=== PATIENT | male | born 1960 | race Caucasian/White ===

== ENCOUNTER 2023-06-25 00:49 | Day surgery (SDC) | payer MEDICARE, SELFPAY ==
[2023-06-18 11:57] VITALS: BMI 30.1
--- NOTE | 2023-06-18 12:04 | PC.NURSE ---
Report to the Outpatient Waiting Room, entrance under the green pavilion located off [facility], at time 0600 on date 06/25/23. Planned Procedure Time: 0730. Time changes happen often and if your time is changed the preop area will call you the afternoon before. - You and your visitor will be asked to self-screen and do not enter if you have any COVID symptoms. - A mask is optional within the hospital at this time. Patients may have clear liquids (water, carbonated beverages, clear teas, apple juice) until 3 hours prior to surgery with a maximum of 20 ounces. - No food from midnight until time of surgery Take the following medications with a SIP of water the morning of surgery: NONE DO NOT STOP ANY OF YOUR OTHER PRESCRIPTION MEDICATIONS PRIOR TO SURGERY ?EXCEPT THE FOLLOWING Medications to discontinue per physician: N/A Date to take last dose: N/A Please no make-up, nail welsh, hairspray, perfume, deodorant, or body powder the day of surgery. No jewelry (including any body piercings) or valuables the day of surgery, leave them at home. Please take a shower or bath the night before, or the morning of, surgery with an antibacterial soap. Wear comfortable, loose fitting clothing. - Jewelry must be removed prior to entering the operating room. Rings and piercings that are not removed may be cut off. - The hospital will not accept responsibility for valuables. - Please leave all valuables, including medications, at home the day of surgery. If you are going home after surgery, a licensed nascar driver must drive you home. - NO public transportation without another adult if you receive anesthesia. - We recommend that an adult stay with you for 24 hours following discharge. - We also recommend that you do not drive, make important decision, drink alcoholic beverages, or take any drugs that were not prescribed by your health care provider for at least 24 hours after your discharge time. Follow any additional instructions given to you from your surgeon. If you or anyone in your household have experienced Covid symptoms in the past week, please notify your surgeon or the nurse liaison at the phone number below for possible testing. Telephone instructions given to PT - BRANDT JAIME and asked if any additional questions and then verbalized understanding. Patient advised to call surgeon office or pre surgery nurse liaison [phone] if any additional questions.
[2023-06-25 06:20] VITALS: BP 115/80; PULSE 62; RESP 18; TEMP 36.6; O2SAT 98
[2023-06-25] MEDS: LACTATED RINGERS 1,000 ML 30 ML IV CONT (06:31)
--- NOTE | 2023-06-25 07:10 | P.PNAN_ITS ---
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 Patient Data Age: 63 Gender: M Height: 1.78 m Weight: 100.3 kg Last Vital Signs Temp 97.9 F 06/25/23 06:20 Pulse 62 06/25/23 06:20 Resp 18 06/25/23 06:20 BP 115/80 06/25/23 06:20 Pulse Ox 98 06/25/23 06:20 O2 Del Method Room Air 06/25/23 06:20 Allergies Allergy/AdvReac Type Severity Reaction Status Date / Time No Known Allergies Allergy Verified 06/25/23 06:19 Home Medications Medication Instructions Recorded Confirmed Type lisinopril 10 mg tablet 10 mg PO DAILY 06/18/23 06/25/23 History Patient hx anesthesia problems: none Family hx anesthesia problems: none Results Review: All pre-operative results and documents have been reviewed as part of the pre- operative evaluation. [facility] Social History Social History Smoking packs per day: 1 Smoking cigarettes per day: 20.0 Years smoked: 35 Smoking pack-years: 35.00 Smoking status: Current every day smoker Tobacco type: cigarettes Alcohol intake: never Substance use: never Substance use type: does not use Living arrangements: with family Additional living arrangements comments: [facility] care concerns: No Anes - Eval Final PreProcedure Day of Procedure 06/25/23 07:10 Patient weight: obese Heart: regular rate and rhythm Lungs: clear to auscultation Airway: Mallampati scale class II Neurological: alert and oriented Last oral intake: >/= 8 hours ASA classification: III Emergent: no Anesthetic plan: proceed Anesthesia type and monitoring: general GIVS and standard monitoring Results Review: All pre-operative results and documents have been reviewed as part of the pre- operative evaluation. Informed Consent: The patient's anesthetic plan and its attendant risks and benefits were discussed with the patient/family/POA. Questions were solicited and answers provided to the satisfaction of the patient/family/POA.
--- NOTE | 2023-06-25 07:19 | WPDHPUPDATE1 ---
History and Physical Update Update Date/Time: 06/25/23 07:19 History and Physical has been reviewed, including an updated exam of the patient. There are NO changes in the patient's condition. Risks, benefits, and alternatives have been discussed and questions answered. Patient agrees to proceed with procedure.
[2023-06-25] MEDS: LIDO 1%/EPINEPHRINE 1:100,000 20 ML VIAL 8 ML INFILTRATE (07:29)
[2023-06-25] MEDS: BACITRACIN OINTMENT 15 GM TUBE 1 APPLIC TOPICAL (07:56)
[2023-06-25 08:34] VITALS: BP 138/70; PULSE 72; RESP 16; O2SAT 93
--- NOTE | 2023-06-25 08:38 | W.PM.PROC2 ---
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 He was taken to the operating room where he was placed supine on the operating table. He was given IV sedation. The left upper extremity was prepped and draped in the usual fashion. A time-out was held and confirmed. The markings were reconfirmed and the sites locally infiltrated with 1% lidocaine with epinephrine. The extremity was exsanguinated and the tourniquet inflated to 200 and 50 mmHg. The surgery was begun in the palm where the incision was made as marked. Blunt dissection through subcutaneous tissue revealed the palmar aponeurosis. This was opened and the transverse retinaculum was seen and divided with a 15 blade. Under 3 point retraction the ligament was divided distally and proximally for complete release. There was no unusual anatomy noted. The skin was closed with interrupted 4-0 nylon suture. Attention was turned to the right elbow. The elbow was flexed and supported on folded towels. The incision was made as marked. Blunt dissection revealed the interspace between the medial epicondyle and the olecranon. Proximally the ulnar nerve was identified fascial covering over that were lysed proximally without difficulty. Distally the nerve was followed beneath Salguero ligament which was also divided. Distally there appeared to be very little compression from the muscle fascia. The nerve tended to ride high on the medial epicondyle but I did not choose to the transpose it. There seemed to be little muscle forcing it to subluxate and the ulnar groove was deep. The tourniquet was released and bleeding points were electrocoagulated. The wound was closed with intradermal 3-0 Monocryl suture at cross [place] and a running intradermal 3-0 Monocryl to close the skin. The usual bandage was applied to both sites. Is discharged with instructions in wound care and follow-up and a prescription for hydrocodone 5/325 6. Estimated Blood Loss 3 Drains No Packing No Pathology None sent Complications No immediate complications Condition Stable Disposition Same day
[2023-06-25 09:00] VITALS: BP 137/78; PULSE 87; RESP 16; O2SAT 95
== END 2023-06-25 09:30 | disposition home or self-care (01) ==
PROVIDERS: PCP Internal Medicine; Visit Provider Plastic Surgery
PROC: (CPT 64721; principal; 2023-06-25 07:30)
DX: G56.02 Carpal tunnel syndrome, left upper limb (principal); G56.22 Lesion of ulnar nerve, left upper limb; F17.210 Nicotine dependence, cigarettes, uncomplicated; E66.9 Obesity, unspecified; Z68.31 Body mass index [BMI] 31.0-31.9, adult
CPT/HCPCS: 64721; 64718; A9270; J1100; J2250; J2405; J2704; J3010; J7120

== ENCOUNTER 2023-11-19 00:46 | Day surgery (SDC) | payer MEDICARE, SELFPAY ==
[2023-11-10 15:37] VITALS: BMI 30.7
--- NOTE | 2023-11-10 15:42 | PC.NURSE ---
Report to the Outpatient Waiting Room, entrance under the green pavilion located off [facility], at time 0700 on date 11/19/23. Planned Procedure Time: 0900. Time changes happen often and if your time is changed the preop area will call you the afternoon before. - You and your visitor will be asked to self-screen and do not enter if you have any COVID symptoms. - A mask is optional within the hospital at this time. Patients may have clear liquids (water, carbonated beverages, clear teas, apple juice) until 3 hours prior to surgery with a maximum of 20 ounces. - No food from midnight until time of surgery Take the following medications with a SIP of water the morning of surgery: NONE DO NOT STOP ANY OF YOUR OTHER PRESCRIPTION MEDICATIONS PRIOR TO SURGERY ?EXCEPT THE FOLLOWING Medications to discontinue per physician: N/A Date to take last dose: N/A Please no make-up, nail italian, hairspray, perfume, deodorant, or body powder the day of surgery. No jewelry (including any body piercings) or valuables the day of surgery, leave them at home. Please take a shower or bath the night before, or the morning of, surgery with an antibacterial soap. Wear comfortable, loose fitting clothing. - Jewelry must be removed prior to entering the operating room. Rings and piercings that are not removed may be cut off. - The hospital will not accept responsibility for valuables. - Please leave all valuables, including medications, at home the day of surgery. If you are going home after surgery, a licensed lumber driver must drive you home. - NO public transportation without another adult if you receive anesthesia. - We recommend that an adult stay with you for 24 hours following discharge. - We also recommend that you do not drive, make important decision, drink alcoholic beverages, or take any drugs that were not prescribed by your health care provider for at least 24 hours after your discharge time. Follow any additional instructions given to you from your surgeon. If you or anyone in your household have experienced Covid symptoms in the past week, please notify your surgeon or the nurse liaison at the phone number below for possible testing. Telephone instructions given to PT - LO JAIME and asked if any additional questions and then verbalized understanding. Patient advised to call surgeon office or pre surgery nurse liaison [phone] if any additional questions.
[2023-11-19] MEDS: LACTATED RINGERS 1,000 ML 30 ML IV CONT (07:10)
--- NOTE | 2023-11-19 07:10 | WPDHPUPDATE1 ---
History and Physical Update Update Date/Time: 11/19/23 07:10 History and Physical has been reviewed, including an updated exam of the patient. There are NO changes in the patient's condition. Risks, benefits, and alternatives have been discussed and questions answered. Patient agrees to proceed with procedure.
[2023-11-19 07:30] VITALS: BP 115/49; PULSE 62; RESP 18; TEMP 36.5; O2SAT 97
--- NOTE | 2023-11-19 08:39 | P.PNAN_ITS ---
Anes - Initial Pre Proc Eval Procedure: Operation Date: 11/19/23 09:00 Proposed Procedures p Right Open Carpal Tunnel Release, and Right Ulnar Neuroplasty - Harris Diaz MD Date/Time: 11/19/23 08:39 Surgeon: Harris Diaz MD Pre Op Diagnosis: Right Carpal tunnel and cubital tunnel syndromes Patient Data Age: 63 Gender: M Height: 1.8 m Weight: 103.8 kg Last Vital Signs Temp 36.5 C 11/19/23 07:30 Pulse 62 11/19/23 07:30 Resp 18 11/19/23 07:30 BP 115/49 L 11/19/23 07:30 Pulse Ox 97 11/19/23 07:30 O2 Del Method Room Air 11/19/23 07:30 Allergies Allergy/AdvReac Type Severity Reaction Status Date / Time No Known Allergies Allergy Verified 11/19/23 06:59 Home Medications Medication Instructions Recorded Confirmed Type lisinopril 10 mg tablet 10 mg PO DAILY 06/18/23 11/19/23 History famotidine 40 mg tablet 40 mg PO HS 11/10/23 11/19/23 History omeprazole 40 mg capsule,delayed 40 mg PO DAILY 11/10/23 11/19/23 History release Patient hx anesthesia problems: post op nausea/vomiting Family hx anesthesia problems: none Results Review: All pre-operative results and documents have been reviewed as part of the pre- operative evaluation. [facility] Social History Social History Smoking packs per day: 1.25 Smoking cigarettes per day: 25.0 Years smoked: 30 Smoking pack-years: 37.50 Smoking status: Current every day smoker Tobacco type: cigarettes Alcohol intake: never Substance use: current Substance use type: marijuana Other substance usage details: [facility] Living arrangements: alone Additional living arrangements comments: [facility] Spiritual care concerns: No Anes - Eval Final PreProcedure Day of Procedure 11/19/23 08:39 Patient weight: obese Heart: regular rate and rhythm Lungs: decreased breath sounds Airway: Mallampati scale class III Neurological: alert and oriented Last oral intake: >/= 8 hours ASA classification: III Emergent: no Anesthetic plan: proceed Anesthesia type and monitoring: general GIVS and LMA and standard monitoring Results Review: All pre-operative results and documents have been reviewed as part of the pre- operative evaluation. Informed Consent: The patient's anesthetic plan and its attendant risks and benefits were discussed with the patient/family/POA. Questions were solicited and answers provided to the satisfaction of the patient/family/POA.
[2023-11-19] MEDS: LIDO 1%/EPINEPHRINE 1:100,000 20 ML VIAL 10 ML INFILTRATE (09:12)
[2023-11-19 09:49] VITALS: BP 129/80; PULSE 75; RESP 12; O2SAT 95
--- NOTE | 2023-11-19 10:01 | W.PM.PROC2 ---
Procedure Note - Detailed Date of Procedure 11/19/23 Pre-op Diagnosis Right Carpal tunnel and cubital tunnel syndromes Post-op Diagnosis Same Procedure Performed Right open carpal tunnel release and right ulnar neuroplasty at the elbow Surgeon Harris Diaz MD Anesthesia MAC Description of Procedure The right carpal tunnel and cubital tunnel marked on the patient's extremity with his consent in the holding area. He was then taken to the operating room with supine the operating table. The patient was IV sedation the right upper extremity was prepped and draped in usual fashion. The sites were marked for the incisions and locally infiltrated with 1% lidocaine with epinephrine. Extremity was exsanguinated and the tourniquet inflated to 250 mmHg. The incision was made 1st in the palm blunt dissection revealed the palmar aponeurosis. This and the transverse retinaculum were incised with a 15. Blade. Under 3 point retraction the ligament was divided distally and proximally to completely release it. The no unusual anatomy noted. The skin was closed with interrupted 4-0 nylon suture. Attention was turned to the elbow which was supported on towels and flexed. The incision was made and blunt dissection through the subcutaneous tissue revealed the course of the ulnar nerve past the medial epicondyle. The nerve was identified rather constrained it appeared under Salguero's ligament and perhaps a little proximal to that. Distally and proximally beyond that region lysis was easily performed and the finger could be passed along the nerve and either and . The nerve did not subluxate with flexion and extension of the elbow The tourniquet was released bleeding points were electrocoagulated and the wound was closed with interrupted intradermal 3-0 Monocryl at the cross [place]. The skin was closed with a running intradermal 3-0 Monocryl suture. The patient was discharged from the operating room after placement of the usual bandage is. He has instructions in wound care and follow-up and a prescription for hydrocodone 5/325 5. Estimated Blood Loss 3 Tourniquet Time Total Tourniquet Time: 18 Drains No Packing No Pathology None sent Complications No immediate complications Condition Stable Disposition Same day
[2023-11-19 10:15] VITALS: BP 137/82; PULSE 50; RESP 20
[2023-11-19 10:40] VITALS: BP 137/82; PULSE 50; RESP 20
== END 2023-11-19 10:48 | disposition home or self-care (01) ==
PROVIDERS: PCP Internal Medicine; Visit Provider Plastic Surgery
PROC: (CPT 64721; principal; 2023-11-19 09:00)
DX: G56.01 Carpal tunnel syndrome, right upper limb (principal); G56.21 Lesion of ulnar nerve, right upper limb; F17.290 Nicotine dependence, other tobacco product, uncomplicated; F12.90 Cannabis use, unspecified, uncomplicated; E66.9 Obesity, unspecified; Z68.31 Body mass index [BMI] 31.0-31.9, adult
CPT/HCPCS: 64721; 64718; A9270; J2250; J2405; J2704; J3010; J7120